=== PATIENT | female | born 1950 | race Caucasian/White ===

== ENCOUNTER 2016-10-15 14:46 | Emergency (ER) | payer OTHER, MEDICARE ==
[~2016-10-15] VITALS: Ht 167.6 cm; Wt 99.8 kg
[~2016-10-15 14:46] MED LIST: ALLERCLEAR10 MG PO; CRESTOR10 MG PO; DIOVAN HCT 1601 EAC1 PO; GLUMETZA1000; HYDROCODONE-ACE15 ML PO; LANTUS SUBQ; LOPRESSOR 12.12.5 MG PO; NIACOR500 MG PO; NOVOLOG100 UNIT/1 SUBQ; PAROXETINE HCL30 MG PO; VITAMIN D1000 UNI1 PO
[2016-10-15 14:49] VITALS: BP 137/64
== END 2016-10-15 16:00 | disposition home or self-care (01) ==
LOC: ER 14:46
DX: S61.214A Laceration without foreign body of right ring finger without damage to nail, initial encounter (principal); I10 Essential (primary) hypertension; E11.9 Type 2 diabetes mellitus without complications; F10.99 Alcohol use, unspecified with unspecified alcohol-induced disorder; Z88.0 Allergy status to penicillin; Z88.2 Allergy status to sulfonamides; Z88.8 Allergy status to other drugs, medicaments and biological substances; Z79.4 Long term (current) use of insulin; W26.0XXA Contact with knife, initial encounter; Y93.89 Activity, other specified; Y92.89 Other specified places as the place of occurrence of the external cause; Y99.8 Other external cause status